=== PATIENT | female | born 1950 | race Native Hawaiian/Other Pacific Islander ===

== ENCOUNTER 2018-09-02 14:11 | Outpatient (CLI) | payer OTHER, BC | END 2018-09-02 19:31 | disposition home or self-care (01) | LOC: RESP 14:11 | DX: R06.02 Shortness of breath (principal) ==

== ENCOUNTER 2020-02-25 18:14 | Emergency (ER) | payer OTHER, BC ==
[~2020-02-25] VITALS: Ht 167.6 cm; Wt 88.9 kg
[2020-02-25 20:05] VITALS: BP 146/72; TEMP 98.9
== END 2020-02-25 20:05 | disposition home or self-care (01) ==
LOC: ED 18:14
DX: N39.0 Urinary tract infection, site not specified (principal)
CPT/HCPCS: 81000; 96372; 99283; J0696

== ENCOUNTER 2020-03-03 14:42 | Emergency (ER) | payer OTHER, BC ==
[~2020-03-03] VITALS: Ht 167.6 cm; Wt 88.9 kg
[2020-03-03 14:52] VITALS: BP 122/63; TEMP 98.2
== END 2020-03-03 16:25 | disposition home or self-care (01) ==
LOC: ED 14:42
DX: N39.0 Urinary tract infection, site not specified (principal)
CPT/HCPCS: 81000; 87088; 99282

== ENCOUNTER 2020-03-05 10:18 | Outpatient (CLI) | payer OTHER, BC | END 2020-03-05 23:57 | disposition home or self-care (01) | LOC: CT 10:18 | DX: R10.84 Generalized abdominal pain (principal); R19.4 Change in bowel habit; N39.0 Urinary tract infection, site not specified | CPT/HCPCS: 36415; 82565; 84520; Q9963 ==

== ENCOUNTER 2022-11-28 17:18 | Emergency (ER) | payer BC ==
[~2022-11-28] VITALS: Ht 167.6 cm; Wt 87.5 kg
[2022-11-28 19:00] VITALS: TEMP 97.6
[2022-11-28 20:55] VITALS: BP 141/78
== END 2022-11-28 20:55 | disposition home or self-care (01) ==
LOC: ED 17:18
DX: S70.02XA Contusion of left hip, initial encounter (principal); W19.XXXA Unspecified fall, initial encounter; Y93.89 Activity, other specified; Y92.009 Unspecified place in unspecified non-institutional (private) residence as the place of occurrence of the external cause; Y99.9 Unspecified external cause status; M16.12 Unilateral primary osteoarthritis, left hip; I10 Essential (primary) hypertension; I25.10 Atherosclerotic heart disease of native coronary artery without angina pectoris
CPT/HCPCS: 99282